=== PATIENT | female | born 1985 | race Caucasian/White ===

== ENCOUNTER 2021-11-25 09:46 | Emergency (ER) | payer OTHER, SELFPAY ==
[2021-11-25 09:48] VITALS: BP 137/84; PULSE 87; RESP 18; TEMP 36.1; O2SAT 99
--- NOTE | 2021-11-25 11:07 | ED.BACK ---
HPI - Back Pain/Injury General Chief Complaint: Back Pain/Injury <RENATA Miller Last Filed: 11/25/21 17:35> Stated Complaint: left sided back pain into buttocks <RENATA Miller Last Filed: 11/25/21 17:35> Time Seen by Provider: 11/25/21 10:56 <RENATA Miller Last Filed: 11/25/21 17:35> History of Present Illness HPI Narrative: Patient is a 36-year-old female here for evaluation of left-sided low back pain over the past several days. She states the pain originates in her left lower back and will radiate down her leg, and some sharp and shooting sensation. She has been walking but notes it is painful. 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 Denies any incontinence or retention of bowel or bladder, saddle anesthesia, fevers or chills. Has attempted IcyHot but has not attempted any oral medications. <RENATA Miller Last Filed: 11/25/21 17:35> Related Data Home Medications: Home Medications Medication Instructions Recorded Confirmed fenofibrate 160 mg tablet mg 11/25/21 sumatriptan succinate 50 mg tablet mg PO 11/25/21 <RENATA Miller Last Filed: 11/25/21 17:35> Allergies/Adverse Reactions: Allergies Allergy/AdvReac Type Severity Reaction Status Date / Time Sulfa (Sulfonamide Allergy Mild DIFF Verified 11/25/21 10:50 Antibiotics) BREATHING <RENATA Miller Last Filed: 11/25/21 17:35> Review of Systems Review of Systems: Gen: Denies fevers or chills Eyes: Denies eye pain or visual change ENT: Denies congestion Respiratory: Denies shortness of breath or cough CV: Denies chest pain or palpitations GI: Denies abdominal pain nausea, emesis or diarrhea denies burning, urgency, frequency or hematuria Musculoskeletal: Reports back pain. Neuro: Denies numbness, tingling, weakness or focal weakness Skin: Denies rash Except as documented, all other systems reviewed and negative <Genoveva Mariee PA-C - Last Filed: 11/25/21 17:35> Exam Narrative: APPEARANCE: Well appearing, no pain in distress, well-nourished. Head: Normocephalic and atraumatic. EYES: PERRLA/EOMI, conjunctivae clear NOSE: No nasal drainage EARS: External ear normal in appearance THROAT: Oropharynx is clear. Mucous membranes are moist. NECK: Supple. No adenopathy, no masses. RESPIRATORY: Airway patent, respirations nonlabored. Clear to auscultation bilaterally, no rales, rhonchi, wheezing. CARDIOVASCULAR: Regular rate and rhythm without murmurs, rubs, or gallops. ABDOMINAL: Normoactive bowel sounds. Soft, nontender, nondistended. No rebound tenderness or guarding. MUSCULOSKELETAL: No bony tenderness to palpation along C, T, or L-spine. No bony tenderness along either hip. Straight leg raise positive on the left. Normal gait. Extremities are warm and well-perfused. Moves all extremities well. No edema. NEURO: Normal speech. No focal neurologic deficits. SKIN: Skin is warm and dry. No rashes. PSYCHIATRIC: Normal affect/mood. <Genoveva Mariee PA-C - Last Filed: 11/25/21 17:35> Course NETTING INSPECTOR/PA Physician Supervision For this patient encounter, I reviewed the NETTING INSPECTOR or PA documentation, treatment plan, and medical decision making <Delvis Masterson MD - Last Filed: 11/26/21 07:14> Vital Signs Vital signs: Vital Signs Temperature 97.0 F L 11/25/21 09:48 Pulse Rate 87 11/25/21 09:48 Respiratory Rate 18 11/25/21 09:48 Blood Pressure 137/84 11/25/21 09:48 Pulse Oximetry 99 11/25/21 09:48 Oxygen Delivery Room Air 11/25/21 09:48 Temperature 97.0 F L 11/25/21 09:48 Pulse Rate 87 11/25/21 09:48 Respiratory Rate 18 11/25/21 09:48 Blood Pressure 137/84 11/25/21 09:48 Pulse Oximetry 99 11/25/21 09:48 Oxygen Delivery Room Air 11/25/21 09:48 <Genoveva Mariee PA-C - Last Filed: 11/25/21 17:35>
[2021-11-25] MEDS: ACETAMINOPHEN 325 MG TABLET 650 MG PO (11:11)
[2021-11-25] MEDS: KETOROLAC 30 MG/ML VIAL (*BKC) IM (11:12)
[2021-11-25] MEDS: LIDOCAINE 5% PATCH 1 PATCH TRANSDERM (11:26)
== END 2021-11-25 11:55 | disposition home or self-care (01) ==
PROVIDERS: Emergency Provider Emergency Medicine
DX: M54.32 Sciatica, left side (principal)
CPT/HCPCS: 96372; 99283; A9270; J1885

== ENCOUNTER 2022-01-10 22:31 | Emergency (ER) | payer OTHER, SELFPAY ==
--- NOTE | ~2022-01-10 | XR_ITS ---
EXAMINATION: XR chest 2V DATE: 01/11/2022 00:48 INDICATION: 2 weeks of cough TECHNIQUE: PA and lateral views of the chest were obtained. COMPARISON: None FINDINGS: Heart The cardiomediastinal silhouette is normal. Visualized bones and soft tissues are unremarkable. IMPRESSION: 1. Normal chest radiograph. Reviewed, dictated and finalized at location A. IMPRESSION: 1. Normal chest radiograph.
[2022-01-10 22:33] VITALS: BP 135/84; PULSE 100; RESP 14; TEMP 36.3; O2SAT 99
[2022-01-11 01:48] VITALS: BP 134/71; PULSE 101; TEMP 36.8; O2SAT 99
[2022-01-11 04:04] VITALS: BP 135/94; PULSE 90; RESP 18; TEMP 36.4; O2SAT 90
--- NOTE | 2022-01-11 04:14 | PC.NURSE ---
PT came up to front end developer designer and stated I gues i'm going to head out, go to take the kids to football. Nurse stated that pt should come back if she felt like she needed to be evaluated by a provider. Pt verbalized understanding. Pt [id number], reps even non-labored. Intermittent cough observed. Pt walked out of ED lobby with steady gait.
[2022-01-11 04:36] LABS: Influenza A QL RT-PCR Negative (Negative); Influenza B QL RT-PCR Negative (Negative); SARS-CoV-2 RNA PCR Negative
== END 2022-01-11 04:18 | disposition left against medical advice (07) ==
PROVIDERS: Emergency Provider Emergency Medicine
DX: R05.9 Cough, unspecified (principal); Z20.822 Contact with and (suspected) exposure to COVID-19
CPT/HCPCS: 71046; 87502; 99199; C9803; U0003; U0005

== ENCOUNTER 2023-03-02 13:27 | Emergency (ER) | payer OTHER, SELFPAY ==
[2023-03-02 13:32] VITALS: BP 148/93; PULSE 80; RESP 16; TEMP 36.2; O2SAT 99
--- NOTE | 2023-03-02 15:00 | PC.NURSE ---
pt seen leaving dept
== END 2023-03-02 16:16 | disposition left against medical advice (07) ==
LOC: ANHED 15:50
DX: N93.9 Abnormal uterine and vaginal bleeding, unspecified (principal)
CPT/HCPCS: 99199

== ENCOUNTER 2024-02-15 04:46 | Emergency (ER) | payer OTHER, SELFPAY ==
[2024-02-15 04:49] VITALS: BP 154/104; PULSE 98; RESP 15; TEMP 36.2; O2SAT 99
--- NOTE | 2024-02-15 05:45 | ED.FEMALEGU ---
HPI - Female Genitourinary General Chief complaint: Urogenital-Female Stated complaint: vaginal pain Time Seen by Provider: 02/15/24 05:05 History of Present Illness HPI Narrative: Patient is a 39-year-old female who presents to the emergency department this morning complaining of a vaginal pain. Patient states that pain started on Wednesday and has progressed. Patient is only sexually active with 1 partner, her and has no concerns for any STDs. Patient states that they were having sex on Wednesday night and then she woke up on Wednesday with pain. Patient used [id number] vaginal to see if it would help with her symptoms but noted that after applying vaginal she did feel some burning. Denies any vaginal discharge, any lesions, and denies any urinary symptoms including dysuria or hematuria. Denies any recent oral antibiotic use. No additional symptoms or concerns at this time. Related Data Home Medications Medication Instructions Recorded Confirmed fenofibrate 160 mg tablet mg 11/25/21 sumatriptan succinate 50 mg tablet mg PO 11/25/21 Allergies Allergy/AdvReac Type Severity Reaction Status Date / Time Sulfa (Sulfonamide Allergy Mild DIFF Verified 02/15/24 04:53 Antibiotics) BREATHING Review of Systems Review of Systems: All systems are reviewed and are negative unless stated otherwise in the HPI. Exam Narrative: General: Alert, awake, afebrile, in no acute distress. HEENT: PERRL, no rhinorrhea, no post nasal drip, oropharynx clear. Cardiovascular: Regular rate and rhythm, no murmurs, rubs or gallops, no peripheral edema. Respiratory: Clear to auscultation bilaterally, no tachypnea, no wheezing, no rhonchi, no rubs, no respiratory distress. Abdomen: Soft, nontender, nondistended, no rebound, no guarding, no peritoneal signs. Pelvic: Exam performed with the presence of female nurse cigar inspector revealing normal external genitalia, small abrasion noted to the medial left labia majora, small amount of clear/whitish discharge, no vaginal lacerations, no genital lesions, patient tolerated exam well, no adnexal tenderness. Musculoskeletal: No joint swelling or deformity, normal muscle tone. Skin: No rashes or petechia, no signs of infection. Neurological: Alert and oriented to person, place, and time. Follows all commands. No focal deficits, speech is clear and fluent. Course Vital Signs Vital signs: Vital Signs Temperature 97.1 F L 02/15/24 04:49 Pulse Rate 98 02/15/24 04:49 Respiratory Rate 15 02/15/24 04:49 Blood Pressure 154/104 H 02/15/24 04:49 Pulse Oximetry 99 02/15/24 04:49 Oxygen Delivery Room Air 02/15/24 04:49 Temperature 97.1 F L 02/15/24 04:49 Pulse Rate 98 02/15/24 04:49 Respiratory Rate 15 02/15/24 04:49 Blood Pressure 154/104 H 02/15/24 04:49 Pulse Oximetry 99 02/15/24 04:49 Oxygen Delivery Room Air 02/15/24 04:49 MDM - Female Genitourinary MDM Narrative Medical decision making narrative: The patient was evaluated by myself in the emergency department. History is obtained from patient who is an independent historian and physical exam was performed. External medical records were reviewed at this time. Differential diagnosis considerations include UTI, STD, yeast infection, vaginal laceration/abrasion secondary to trauma. Comorbidities impacting this visit include none. I have evaluated and discussed social determinants of health with the patient that could potentially impact subsequent diagnosis and treatment plans. On repeat assessment of the patient, reevaluation revealed that the patient is doing well and is in no acute distress. Patient symptoms have remained stable since she arrived to our emergency department. Repeat vital signs were all reviewed and noted to be stable. Differential diagnosis and treatment plan were discussed with the patient at bedside. Patient agrees with discussion and after shared medical decision making agrees with discharge. All questions were answered to the patient's satisfaction. Patient will follow up with OBGYN in 3-5 days. Patient was provided with strict return precautions and instructed to return to the emergency department if any new or worsening symptoms develop. The patient was discharged in stable condition. Discharge Plan Discharge Clinical Impression: Abrasion of vagina Patient Disposition: Home, Self-Care Condition: Stable Instructions: Antibiotic Form Additional Instructions: Please follow-up with your OBGYN within the next 3-5 days. Return to the emergency department for new or worsening symptoms develop. Prescriptions: No Action sumatriptan succinate 50 mg tablet PO fenofibrate 160 mg tablet cyclobenzaprine 7.5 mg tablet 7.5 mg PO HS PRN (Reason: muscle spasm) Qty: 14 0RF Follow-up/Referrals: Staci Saravia MD [Physician] - 3 Days PHYSICIAN NOT ON STAFF,NONSTAFF [Primary Care Provider] - Time of Disposition: 05:47
== END 2024-02-15 06:02 | disposition home or self-care (01) ==
LOC: ANHED 05:51
PROVIDERS: Emergency Provider Emergency Medicine
DX: S30.814A Abrasion of vagina and vulva, initial encounter (principal); X58.XXXA Exposure to other specified factors, initial encounter
CPT/HCPCS: 99281; 99283

== ENCOUNTER 2024-09-27 13:31 | Emergency (ER) | payer OTHER, SELFPAY ==
[2024-09-27 13:49] VITALS: BP 140/89; PULSE 68; RESP 16; TEMP 36.7; O2SAT 98
--- NOTE | 2024-09-27 14:26 | ED_ITS ---
HPI - Skin/Abscess/Foreign Bdy General Chief complaint: Skin/Abscess/Foreign Body Stated complaint: Rash Time Seen by Provider: 09/27/24 14:14 Source: patient and RN notes reviewed Mode of arrival: ambulatory Limitations: no limitations History of Present Illness HPI narrative: Patient presents today with a 2 day history of a pruritic rash to the neck and face that occurred [place]. Daughter has similar rash, but has been and son do not. She has tried oral and topical Benadryl with mild relief of itching but no improvement of rash. Denies any additional symptoms. No contact with new plants, animals, medications, household products. Related Data Home Medications ?Medication ?Instructions ?Recorded ?Confirmed ?Last Taken ?Type fenofibrate 160 mg tablet mg 11/25/21 Unknown History sumatriptan succinate 50 mg tablet mg PO 11/25/21 Unknown History Allergies Allergy/AdvReac Type Severity Reaction Status Date / Time Sulfa (Sulfonamide Allergy Mild DIFF Verified 09/27/24 13:55 Antibiotics) BREATHING PMFSH Comments At time of signature, I have reviewed and agree with nursing past medical, surgical, social and family history unless otherwise noted. Please see nursing chart for further information. There is no relevant family history pertinent to the presenting complaint Exam Narrative: GENERAL: Well-appearing, well-nourished, and in no acute distress. HEAD: Normocephalic, atraumatic. EYES: EOMI. No redness or drainage. Conjunctivae normal. ENT: Mucous membranes pink and moist. NECK: Normal AROM. CHEST: No respiratory distress. EXTREMITIES: Normal range of motion. No edema. SKIN: Warm, dry. Capillary refill normal. Normal skin turgor. Erythematous maculopapular rash to the bilateral cheeks extending to the lateral and posterior neck. No induration, fluctuance, drainage or crusting. NEURO: No focal deficits. Alert and oriented x3. Gait steady. PSYCH: Normal affect. No signs of depression or anxiety. Course Course Level of Care: Express Care Visit Vital Signs Vital signs: Vital Signs Temperature 98.1 F 09/27/24 13:49 Pulse Rate 68 09/27/24 13:49 Respiratory Rate 16 09/27/24 13:49 Blood Pressure 140/89 09/27/24 13:49 Pulse Oximetry 98 09/27/24 13:49 Oxygen Delivery Room Air 07/09/25 13:49 Temperature 98.1 F 09/27/24 13:49 Pulse Rate 68 09/27/24 13:49 Respiratory Rate 16 09/27/24 13:49 Blood Pressure 140/89 09/27/24 13:49 Pulse Oximetry 98 09/27/24 13:49 Oxygen Delivery Room Air 09/27/24 13:49 Reviewed MDM - Skin/Abscess/Foreign Bdy MDM Narrative Medical decision making narrative: Pleasant 39-year-old female patient presents with pruritic rash to the cheeks, lateral and posterior neck after going camping on a beach and tubing on a river with her family. Daughter with similar rash, but has been and son do not have rash. She denies any exposures to new things. OTC treatment unhelpful. Etiology uncertain. Prescription for prednisone sent to pharmacy. Vital signs stable. Anticipatory guidance given. Differential Diagnosis Differential diagnosis: Likely abscess of skin or subcutaneous tissue, viral exanthem, dermatophytosis, cellulitis, insect bites, impetigo and contact dermatitis Critical Care Time Critical Care Time Critical Care Time: No Discharge Plan Discharge Clinical Impression: Contact dermatitis Qualifiers: Contact dermatitis type: unspecified Contact dermatitis trigger: unspecified trigger Qualified Code(s): L25.9 - Unspecified contact dermatitis, unspecified cause Patient Disposition: Home Condition: Stable Instructions: Contact Dermatitis (DC) Additional Instructions: Your rash is likely due to something if come into contact with that is irritating your skin. Please take the prednisone as directed. Continue an antihistamine for itching such as Zyrtec, Claritin, or Annabel. Follow-up with your PCP next week if symptoms persist. Your blood pressure was elevated above 120/80 today at Urgent Care. This puts you above the threshold for follow up. Please schedule a followup visit with your personal physician as soon as possible, for further evaluation and treatment. Even blood pressure exceeding 120/80 may indicate pre-hypertension. Patient Language: [place] Prescriptions: New prednisone 20 mg tablet 40 mg PO DAILY 7 Days Qty: 14 0RF No Action sumatriptan succinate 50 mg tablet PO fenofibrate 160 mg tablet Follow-up/Referrals: PHYSICIAN,HYDRAULIC DREDGE OPERATOR [Primary Care Provider] - Time of Disposition: 14:29
== END 2024-09-27 14:36 | disposition home or self-care (01) ==
PROVIDERS: Emergency Provider Nurse Practitioner
DX: L25.9 Unspecified contact dermatitis, unspecified cause (principal)
CPT/HCPCS: 99213; G0463